=== PATIENT | male | born 1995 | race Caucasian/White ===

== ENCOUNTER 2022-05-09 09:18 | Emergency (ER) | payer SELFPAY ==
[~2022-05-09] VITALS: Ht 172.7 cm; Wt 109.0 kg
[2022-05-09] MEDS ORDERED: ADDERALL 15 MG15 MG PO (09:39)
[2022-05-09] MEDS ORDERED: AMOX TR-K CLV1 EAC1 PO (09:46)
--- OUTSIDE RECORDS SUMMARY | 2022-05-09 10:34 | XMS ---
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 EBambi VISIT COUNT (12 MO.) 1 JULIANE Sebastian TOTAL 1 NOTE: Visits indicate total known visits. ED/UCC VISIT TRACKING (12 MO.) 05/09/2022 09:19 JULIANE [place] TYPE: Emergency COMPLAINT: - ANIMAL BITE INPATIENT VISIT TRACKING (12 MO.) No inpatient visits to display in this time frame [email or web address]
== END 2022-05-09 10:00 | disposition home or self-care (01) ==
LOC: ED 09:18
DX: S61.452A Open bite of left hand, initial encounter (principal); L03.114 Cellulitis of left upper limb; W55.01XA Bitten by cat, initial encounter
CPT/HCPCS: 99283

== ENCOUNTER 2022-08-11 04:28 | Emergency (ER) | payer OTHER ==
[~2022-08-11] VITALS: Ht 177.8 cm; Wt 107.1 kg
[~2022-08-11 04:28] MED LIST: ADDERALL 15 MG15 MG PO; AMOX TR-K CLV1 EAC1 PO
--- OUTSIDE RECORDS SUMMARY | 2022-08-11 04:30 | XMS ---
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 EBambi VISIT COUNT (12 MO.) 2 JULIANE Sebastian TOTAL 2 NOTE: Visits indicate total known visits. ED/UCC VISIT TRACKING (12 MO.) 08/11/2022 04:29 JULIANE [facility] [place] TYPE: Emergency COMPLAINT: - N/V/D 05/09/2022 09:19 JULIANE [place] TYPE: Emergency COMPLAINT: - ANIMAL BITE DIAGNOSES: - Cellulitis of left upper limb - Bitten by cat, initial encounter - Open bite of left hand, initial encounter INPATIENT VISIT TRACKING (12 MO.) No inpatient visits to display in this time frame [email or web address]
[2022-08-11] MEDS ORDERED: ONDANSETRON ODT8 MG PO (06:43)
[2022-08-11] MEDS ORDERED: LOMOTIL TABLET1 EACH PO (06:43)
== END 2022-08-11 07:19 | disposition home or self-care (01) ==
LOC: ED 04:28
DX: K52.9 Noninfective gastroenteritis and colitis, unspecified (principal); Z20.822 Contact with and (suspected) exposure to COVID-19; I10 Essential (primary) hypertension
CPT/HCPCS: 36415; 74177; 80053; 83690; 85025; 87502; 96361; 96375; 99284-25; A9270; J1790; J2270; J7030; Q9967; U0003

== ENCOUNTER 2023-04-25 15:40 | Emergency (ER) | payer OTHER ==
[~2023-04-25] VITALS: Ht 177.8 cm; Wt 107.1 kg
[~2023-04-25 15:40] MED LIST changes: +LOMOTIL TABLET1 EACH PO; +ONDANSETRON ODT8 MG PO
[2023-04-25 17:22] VITALS: BP 149/91
== END 2023-04-25 17:24 | disposition home or self-care (01) ==
LOC: ED 15:40
DX: S81.012A Laceration without foreign body, left knee, initial encounter (principal); W22.8XXA Striking against or struck by other objects, initial encounter; I10 Essential (primary) hypertension; Z79.899 Other long term (current) drug therapy
CPT/HCPCS: 73560

== ENCOUNTER 2023-06-19 08:36 | Emergency (ER) | payer OTHER ==
[~2023-06-19] VITALS: Ht 177.8 cm; Wt 113.2 kg
[2023-06-19] MEDS ORDERED: PREDNISONE20 MG PO (09:25)
[2023-06-19 09:44] VITALS: BP 150/96
== END 2023-06-19 09:46 | disposition home or self-care (01) ==
LOC: ED 08:36
DX: M54.12 Radiculopathy, cervical region (principal); I10 Essential (primary) hypertension
CPT/HCPCS: 73030; 99283-25; J1100

== ENCOUNTER 2023-09-11 10:05 | Emergency (ER) | payer OTHER ==
[~2023-09-11] VITALS: Ht 177.8 cm; Wt 105.5 kg
[~2023-09-11 10:05] MED LIST changes: +PREDNISONE20 MG PO
[2023-09-11 10:24] LABS: BASOPHILS 0.6 % (0-2); EOSINOPHILS 0.6 % (0-6); HEMATOCRIT 51.8 % (35.0-50.0); HEMOGLOBIN 18.2 g/dL (12.0-18.0); LYMPHOCYTES 21.5 % (24-44); MCHC 35.2 g/dl (30-36); MCV 90.9 fl (81-99); MONOCYTES 9.9 % (0-12); NEUTROPHILS 67.4 % (39-80); PLATELET COUNT 351 K/uL (140-440); RDW 13.6 (10.5-15.0)
[2023-09-11 10:39] LABS: ALBUMIN 4.6 g/dL (3.4-5.0); ALBUMIN/GLOBULIN RATIO 1.35 (1.1-2.4); ANION GAP 15.1 (7-21); BILIRUBIN, TOTAL 0.5 ng/dL (0.2-1.0); BUN/CREATININE RATIO 8.94 (6.0-28.6); CREATININE, SERUM 1.23 mg/dL (0.70-1.30); POTASSIUM 4.1 mmol/L (3.5-5.1)
[2023-09-11] MEDS ORDERED: KETOROLAC TROMETHAMINE 15 MG/ML VIAL IM ONE (10:45)
[2023-09-11] MEDS ORDERED: KETOROLAC TROMETHAMINE 15 MG/ML VIAL IV ONE (11:15)
[2023-09-11 12:38] LABS: BILIRUBIN, URINE NEGATIVE (negative); BLOOD/HGB, URINE NEGATIVE (Negative); KETONE, URINE TRACE (Negative); LEUK ESTERASE, URINE NEGATIVE (negative); NITRITE, URINE NEGATIVE (negative)
[2023-09-11 13:02] LABS: AMPHETAMINES, URINE NEGATIVE (NEGATIVE); BARBITURATES, URINE NEGATIVE (NEGATIVE); BENZODIAZEPINE, URINE NEGATIVE (NEGATIVE); BUPRENORPHINE, URINE NEGATIVE (NEGATIVE); CANNABINOID, URINE POSITIVE (NEGATIVE); COCAINE, URINE NEGATIVE (NEGATIVE); ECSTASY, URINE NEGATIVE (NEGATIVE); FENTANYL, URINE NEGATIVE (NEGATIVE); METHADONE, URINE NEGATIVE (NEGATIVE); OPIATES, URINE NEGATIVE (NEGATIVE); OXYCODONE, URINE NEGATIVE (NEGATIVE); PHENCYCLIDINE, URINE NEGATIVE (NEGATIVE)
[2023-09-11 13:43] VITALS: BP 144/77
== END 2023-09-11 13:43 | disposition home or self-care (01) ==
LOC: ED 10:05
PROVIDERS: Emergency Medicine
DX: R56.9 Unspecified convulsions (principal); I10 Essential (primary) hypertension
CPT/HCPCS: 36415; 70450; 80053; 80307; 81003; 83735; 85025; 96374; 99285-25; G0480; J1885

== ENCOUNTER 2024-08-18 01:09 | Emergency (ER) | payer SELFPAY ==
[~2024-08-18] VITALS: Ht 177.8 cm; Wt 105.0 kg
[2024-08-18 01:28] LABS: HEMATOCRIT 54.6 % (35.0-50.0); HEMOGLOBIN 19.4 g/dL (12.0-18.0); MCH 33.2 (27-36); MCHC 35.5 g/dl (30-36); MCV 93.5 fl (81-99); PLATELET COUNT 408 K/uL (140-440); RBC 5.84 M/ul (4.3-5.7); RDW 13.6 (10.5-15.0)
[2024-08-18] MEDS ORDERED: ondansetron HCL 4 MG/2 ML VIAL IV ONE (01:30)
[2024-08-18] MEDS ORDERED: SODIUM CHLORIDE 0.9% 500 ML IV ONE (01:30)
[2024-08-18] MEDS ORDERED: droPERidol 5 MG/2 ML VIAL IV ONE (01:30)
[2024-08-18 01:46] LABS: ALBUMIN 4.9 g/dL (3.4-5.0); ALBUMIN/GLOBULIN RATIO 1.53 (1.1-2.4); ANION GAP 18.9 (7-21); BILIRUBIN, TOTAL 0.6 mg/dL (0.2-1.0); BUN/CREATININE RATIO 14.68 (6.0-28.6); CALCIUM 9.3 mg/dL (8.5-10.1); CREATININE, SERUM 1.43 mg/dL (0.70-1.30); MAGNESIUM 2.1 mg/dL (1.8-2.4); POTASSIUM 3.9 mmol/L (3.5-5.1); PROTEIN, TOTAL 8.1 g/dL (6.4-8.2)
[2024-08-18 02:04] LABS: LYMPHOCYTES, MANUAL DIFF 15; MONOCYTES, MANUAL DIFF 9; NEUTROPHILS, MANUAL DIFF 76
[2024-08-18 02:12] LABS: BILIRUBIN, URINE POSITIVE (negative); BLOOD/HGB, URINE NEGATIVE (Negative); KETONE, URINE SMALL (Negative); LEUK ESTERASE, URINE NEGATIVE (negative); NITRITE, URINE NEGATIVE (negative)
[2024-08-18 02:18] LABS: BACTERIA, URINE RARE /hpf (negative); CASTS, URINE NONE SEEN \\lpf; COLLECTION TYPE, URINE CLEAN CATCH; CRYSTALS, URINE NONE SEEN (0-1+); EPITHELIAL CELLS, URINE 0 /lpf (0-1+); REFLEX CULTURE, URINE No (No)
[2024-08-18] MEDS ORDERED: PROMETHEGAN25 MG PR (02:39)
[2024-08-18] MEDS ORDERED: LOMOTIL TABLET1 EACH PO (02:39)
[2024-08-18 02:45] VITALS: BP 128/89
[2024-08-18] MEDS ORDERED: PROMETHAZINE HCL 25 MG SUPP. HOME.PACK PR ONE (02:45)
[2024-08-18] MEDS ORDERED: DIPHENOXYLATE/ATROPINE 1 EA TAB PO ONE (02:45)
[2024-08-18] MEDS ORDERED: ONDANSETRON 4 MG HOME.PACK SL ONE (02:45)
== END 2024-08-18 02:45 | disposition home or self-care (01) ==
LOC: ED 01:09
PROVIDERS: Family Medicine
DX: K52.9 Noninfective gastroenteritis and colitis, unspecified (principal); I10 Essential (primary) hypertension
CPT/HCPCS: 36415; 80053; 81001; 83735; 85025; 96361; 96374; 96375; 99284-25; A9270; J1790; J2405; J7040